=== PATIENT | male | born 1970 | race Caucasian/White ===

== ENCOUNTER 2021-04-06 08:47 | Day surgery (SDC) | payer BC ==
[2021-04-06] MEDS ORDERED: Depo-Medrol 40 MG/ML IM ONE (08:48)
[2021-04-06] MEDS ORDERED: Sodium Chloride 0.9(Preservative Free) 10 ML IJ ONE (08:48)
[2021-04-06] MEDS ORDERED: DIPRIVAN 200 MG/20 ML IV ONE (10:04)
--- NOTE | 2021-04-06 11:44 | XRAY ---
23 seconds fluoroscopy time in surgery for left L4-S1 transforminal MAMIE.
--- NOTE | 2021-04-06 12:07 | XRAY ---
Indication: Left L4-S1 transforaminal MAMIE. Intraoperative fluoroscopy provided for 23 seconds. 2 digital spot image submitted for interpretation demonstrates posterior needle tips projecting over the expected left L4 and L5 nerve roots. Small amount of contrast injected for needle tip placement. Correlate with intraoperative findings/report.
[2021-04-06] MEDS ORDERED: Lactated Ringers 1,000 ML IV ONE (15:29)
== END 2021-04-06 10:35 | disposition home or self-care (01) ==
LOC: SDC-PAIN 08:47
PROVIDERS: ATTEND Psychiatry & Neurology Pain Medicine
DX: M54.16 Radiculopathy, lumbar region (principal); E11.9 Type 2 diabetes mellitus without complications; I25.10 Atherosclerotic heart disease of native coronary artery without angina pectoris; I10 Essential (primary) hypertension; M79.7 Fibromyalgia; K21.9 Gastro-esophageal reflux disease without esophagitis; Z79.899 Other long term (current) drug therapy
CPT/HCPCS: 64483; 64484; 72100; 77003; 82947; J1030; J2704; Q9966

== ENCOUNTER 2021-07-20 10:12 | Day surgery (SDC) | payer BC ==
[2021-07-20] MEDS ORDERED: LIDOCAINE HCL 2% 100 MG/5 ML IJ ONE (10:13)
[2021-07-20] MEDS ORDERED: DIPRIVAN 200 MG/20 ML IV ONE (11:22)
--- NOTE | 2021-07-20 12:59 | XRAY ---
Indication: Bilateral L4-S1 MBB. Intraoperative fluoroscopy provided for 11 seconds. Single digital spot image submitted for interpretation demonstrate posterior needle tips projecting over the expected left and right L4-S1 nerve roots. Correlate with intraoperative findings/report.
--- NOTE | 2021-07-20 13:35 | XRAY ---
11 seconds fluoroscopy time in surgery for bilateral L4-S1 MBB.
[2021-07-20] MEDS ORDERED: Lactated Ringers 1,000 ML IV ONE (15:26)
== END 2021-07-20 11:36 | disposition home or self-care (01) ==
LOC: SDC-PAIN 10:12
PROVIDERS: ATTEND Psychiatry & Neurology Pain Medicine
DX: M47.816 Spondylosis without myelopathy or radiculopathy, lumbar region (principal); E11.9 Type 2 diabetes mellitus without complications; Z79.899 Other long term (current) drug therapy
CPT/HCPCS: 64493; 64494; 72020; 77002; 82947; J2704

== ENCOUNTER 2021-08-17 09:57 | Day surgery (SDC) | payer BC ==
[2021-08-17] MEDS ORDERED: Depo-Medrol 40 MG/ML IM ONE (09:58)
[2021-08-17] MEDS ORDERED: BUPIVACAINE 0.5% VIAL IJ ONE (09:58)
[2021-08-17] MEDS ORDERED: DIPRIVAN 200 MG/20 ML IV ONE (12:12)
[2021-08-17] MEDS ORDERED: Lactated Ringers 1,000 ML IV ONE (12:35)
--- NOTE | 2021-08-17 13:21 | XRAY ---
Indication: Bilateral L4-S1 MBB. Intraoperative fluoroscopy provided for 11 seconds. Single digital spot image submitted for interpretation demonstrates posterior needle tips projecting over the expected left and right L4-S1 nerve roots. Correlate with intraoperative findings/report.
--- NOTE | 2021-08-17 13:23 | XRAY ---
11 seconds fluoroscopy time in surgery for bilateral L4-S1 MBB.
== END 2021-08-17 12:41 | disposition home or self-care (01) ==
LOC: SDC-PAIN 09:57
PROVIDERS: ATTEND Psychiatry & Neurology Pain Medicine
DX: M47.816 Spondylosis without myelopathy or radiculopathy, lumbar region (principal); E11.9 Type 2 diabetes mellitus without complications; I25.10 Atherosclerotic heart disease of native coronary artery without angina pectoris; I10 Essential (primary) hypertension; Z79.899 Other long term (current) drug therapy
CPT/HCPCS: 64493; 64494; 72020; 77002; 82947; J1030; J2704

== ENCOUNTER 2021-09-14 08:58 | Day surgery (SDC) | payer BC ==
[2021-09-14] MEDS ORDERED: Depo-Medrol 40 MG/ML IM ONE (08:59)
[2021-09-14] MEDS ORDERED: Xylocaine 1% Vial 30 ML PF IJ ONE (08:59)
[2021-09-14] MEDS ORDERED: BUPIVACAINE 0.5% VIAL IJ ONE (08:59)
[2021-09-14] MEDS ORDERED: Lactated Ringers 1,000 ML IV ONE (10:26)
[2021-09-14] MEDS ORDERED: DIPRIVAN 200 MG/20 ML IV ONE (10:33)
--- NOTE | 2021-09-14 11:38 | XRAY ---
Indication: Left L4-S1 RFA. Intraoperative fluoroscopy provided for 23 seconds. 3 digital spot image submitted for interpretation demonstrates posterior needle tips projecting over the expected left L4-S1 nerve roots. Correlate with intraoperative findings/report.
--- NOTE | 2021-09-14 12:25 | XRAY ---
23 seconds of fluoroscopy was used in surgery for a left L4-S1 RFA.
== END 2021-09-14 11:01 | disposition home or self-care (01) ==
LOC: SDC-PAIN 08:58
PROVIDERS: ATTEND Psychiatry & Neurology Pain Medicine
DX: M47.816 Spondylosis without myelopathy or radiculopathy, lumbar region (principal); E11.9 Type 2 diabetes mellitus without complications; I10 Essential (primary) hypertension; Z79.899 Other long term (current) drug therapy
CPT/HCPCS: 64635; 64636; 72100; 77002; 82947; J1030; J2001; J2704

== ENCOUNTER 2021-09-21 06:45 | Day surgery (SDC) | payer BC ==
[2021-09-21] MEDS ORDERED: Xylocaine 1% Vial 30 ML PF IJ ONE (06:46)
[2021-09-21] MEDS ORDERED: BUPIVACAINE 0.5% VIAL IJ ONE (06:46)
[2021-09-21] MEDS ORDERED: Depo-Medrol 40 MG/ML IM ONE (06:46)
[2021-09-21] MEDS ORDERED: DIPRIVAN 200 MG/20 ML IV ONE (07:57)
[2021-09-21] MEDS ORDERED: Lactated Ringers 1,000 ML IV ONE (08:47)
--- NOTE | 2021-09-21 10:33 | XRAY ---
Indication: Right L4-S1 RFA. Intraoperative fluoroscopy provided for 24 seconds. 4 digital spot images submitted for interpretation demonstrates posterior needle tips projecting over the expected right L4-S1 S1 nerve roots. Correlate with intraoperative findings/report.
--- NOTE | 2021-09-21 10:40 | XRAY ---
24 seconds of fluoroscopy was used in surgery for a right L4-S1 RFA.
== END 2021-09-21 08:35 | disposition home or self-care (01) ==
LOC: SDC-PAIN 06:45
PROVIDERS: ATTEND Psychiatry & Neurology Pain Medicine
DX: M47.816 Spondylosis without myelopathy or radiculopathy, lumbar region (principal); E11.9 Type 2 diabetes mellitus without complications; I10 Essential (primary) hypertension; Z79.899 Other long term (current) drug therapy
CPT/HCPCS: 64635; 64636; 72100; 77002; 82947; J1030; J2001; J2704